=== PATIENT | male | born 1965 | race Caucasian/White ===

== ENCOUNTER → 2020-11-05 13:48 | Outpatient (BNVA) | payer SELFPAY | PROVIDERS: PCP Nurse Practitioner Family; Visit Provider Urology | DX: Z13.89 Encounter for screening for other disorder (principal) | CPT/HCPCS: 99212 ==

== ENCOUNTER 2022-12-12 08:21 | Outpatient (AMB) | payer OTHER, SELFPAY ==
--- NOTE | 2022-12-12 08:22 | MHC.OFFVIS ---
Intake Intake Visit Reasons: 1 year follow up(Erectile Dys) Intake Note: Patient is present for Follow Up yearly follow up Urology Med: Tadalafil Antibiotic Allergy:None Blood Thinner: None [facility]acy: [facility] HX Of bladder Cancer 2016- Cytology sent to lab Allergies No Known Allergies Allergy (Verified 12/12/22 08:24) HPI HPI Comments History of Present Illness Details Warren is pleasant male. He is a patient of Dr. Melton. 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 [facility] 12/03 These have been followed with other urologists Last testosterone 500s Response to Cialis Continue yearly follow-up [facility] Medical History (Updated 12/12/22 @ 08:25 by DAWIT Cheung) Hx of bladder cancer Hx of blood clots Hx of testicular cancer Review of Systems Const Denies chills and Denies fever(s) Card Reports no additional complaints and Denies syncope Resp Denies cough GI Denies abdominal pain and Denies heartburn Reports as per HPI and Denies change in libido Neuro Denies syncope Psych Denies change in libido Endo Denies change in libido Physical Exam Const General: cooperative, healthy appearing, comfortable and no acute distress Orientation/consciousness: patient oriented x3 HEENT Face and sinus: Yes normal facial exam Mouth: moist mucous membranes Neck Neck: Yes normal visual inspection, Yes full ROM and Yes trachea midline Chest Chest palpation & inspection: normal inspection of the chest Resp Effort & Inspection: normal respiratory effort, able to speak in complete sentences and no respiratory distress GI Inspection: Yes normal to inspection Back/Spine/Pelvis Cervical Spine: normal cervical lordosis Thoracic/Lumbar Spine: thoracic and lumbar spine normal to inspection Skin General skin exam: no rashes or lesions noted Neuro General: patient oriented x3, gait normal, tone normal and moves all extremities Extrem General: Yes normal to inspection and Yes capillary refill normal Results AMB Urinalysis, Automated UA Leukoctes 125 Andrew/uL Last Edit by DAWIT Cheung on 12/12/22 08:32 UA Nitrite Negative Last Edit by DAWIT Cheung on 12/12/22 08:32 UA Urobilinogen 0.2 mg/dL Last Edit by Jessica Garcia, RMA on 12/12/22 08:32 UA Protein 15 mg/dL Last Edit by Jessica Garcia, RMA on 12/12/22 08:32 UA pH 6.0 Last Edit by Jessica Garcia, RMA on 12/12/22 08:32 UA Blood 25 Jamel/uL Last Edit by Jessica Garcia, RMA on 12/12/22 08:32 UA Specific [place] 1.010 Last Edit by Jessica Garcia, RMA on 12/12/22 08:32 UA Ketone Negative Last Edit by Jessica Garcia, RMA on 12/12/22 08:32 UA Bilirubin 0 mg/dL Last Edit by Jessica Garcia, RMA on 12/12/22 08:32 UA Glucose 0 mg/dL Last Edit by Jessica Garcia, RMA on 12/12/22 08:32 Results Reviewed Results Reviewed: Laboratory Last Values Urine pH (Auto) 6.0 12/12/22 08:26 Specific [place] (Auto) 1.010 12/12/22 08:26 Urine Protein (Auto) 15 mg/dL 12/12/22 08:26 Glucose (UA)(Auto) 0 mg/dL 12/12/22 08:26 Urine Ketones (Auto) Negative 12/12/22 08:26 Urine Blood (Auto) 25 Jamel/uL 12/12/22 08:26 Urine Nitrite (Auto) Negative 12/12/22 08:26 Urine Bilirubin (Auto) 0 mg/dL 12/12/22 08:26 Urine Urobilinogen (Auto) 0.2 mg/dL 12/12/22 08:26 Leukocyte Esterase (Auto) 125 Andrew/uL 12/12/22 08:26 Assessment & Plan Assessment & Plan (1) Erectile dysfunction: Code(s): N52.9 - Male erectile dysfunction, unspecified Plan Twelve month follow-up Orders: Orders Urine Cytology Today Z85.51 - Personal history of malignant neoplasm of bladder AMB Urinalysis Automated Today Z13.9 - Encounter for screening, unspecified Patient Instructions: Imaging studies, laboratory and physical exam results were discussed and reviewed in detail. No major barriers to patient understanding were identified. An opportunity to ask questions regarding the treatment plan was provided. All questions were answered. The patient expressed understanding and agreement with the above treatment plan. The patient is aware they should contact our office by phone for worsening of their current condition or the appearance of new urologic symptoms. Compliance is encouraged with any medications and followup testing that is ordered. It is a privilege to participate in the urologic care of your patient. If you have any questions or concerns regarding treatment for the above conditions, or other urologic issues, please do not hesitate to contact me. The office telephone contact is [phone]. This note is constructed using voice recognition software. While every effort has been made to ensure accuracy government service executive errors may have been included. Yours sincerely, Dr Unruly Painter MD, [facility] - Urology Providers of Expert, Compassionate Care for the Genitourinary System Coding Level of Care Code Est Pt Level 4 (35210) Diagnoses Erectile dysfunction N52.9
== END 2022-12-12 08:51 | disposition home or self-care (01) ==
PROVIDERS: Visit Provider Urology
DX: N52.9 Male erectile dysfunction, unspecified (principal)
CPT/HCPCS: 99213

== ENCOUNTER 2022-12-12 08:21 | Outpatient (REF) | payer OTHER, SELFPAY ==
[2022-12-12 19:45] LABS: Urine Cytology See Pathology rpt
== END 2022-12-12 08:22 | disposition home or self-care (01) ==
LOC: HO.LAB 08:21
PROVIDERS: Visit Provider Urology
DX: N52.9 Male erectile dysfunction, unspecified (principal); Z85.51 Personal history of malignant neoplasm of bladder
CPT/HCPCS: 88112

== ENCOUNTER 2023-12-13 08:21 | Outpatient (AMB) | payer OTHER, SELFPAY ==
--- NOTE | 2023-12-13 08:31 | MHC.OFFVIS ---
Intake Visit Reasons: 1Y Follow Up-Erectile Dys Intake Note: Patient is Present for Follow Up Urology Medication: Tadalafil Antibiotic Allergies:none Blood Thinners:none Dye House Supervisor Required: No Allergies No Known Allergies Allergy (Verified 12/12/22 08:24) HPI Comments Details: Warren is pleasant male. He is a patient of Dr. Melton. 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 [facility] 12/03 These have been followed with other urologists - is undergoing surveillance imaging every 6 months Last testosterone 500s Response to Cialis Continue yearly follow-up [facility] Medical History Hx of bladder cancer Hx of testicular cancer Hx of blood clots Review of Systems Const Denies chills and Denies fever(s) Card Reports no additional complaints and Denies syncope Resp Denies cough GI Denies abdominal pain and Denies heartburn Reports as per HPI and Denies change in libido Neuro Denies syncope Psych Denies change in libido Endo Denies change in libido Physical Exam Const General: cooperative, healthy appearing, comfortable and no acute distress Orientation/consciousness: patient oriented x3 HEENT Face and sinus: Yes normal facial exam Mouth: moist mucous membranes Neck Neck: Yes normal visual inspection, Yes full ROM and Yes trachea midline Chest Chest palpation & inspection: normal inspection of the chest Resp Effort & Inspection: normal respiratory effort, able to speak in complete sentences and no respiratory distress GI Inspection: Yes normal to inspection Back/Spine/Pelvis Cervical Spine: normal cervical lordosis Thoracic/Lumbar Spine: thoracic and lumbar spine normal to inspection Skin General skin exam: no rashes or lesions noted Neuro General: patient oriented x3, gait normal, tone normal and moves all extremities Extrem General: Yes normal to inspection and Yes capillary refill normal Assessment & Plan Assessment & Plan (1) Erectile dysfunction: Code(s): N52.9 - Male erectile dysfunction, unspecified Category: Medical Plan Twelve month follow-up office Patient Instructions: Imaging studies, laboratory and physical exam results were discussed and reviewed in detail. No major barriers to patient understanding were identified. An opportunity to ask questions regarding the treatment plan was provided. All questions were answered. The patient expressed understanding and agreement with the above treatment plan. The patient is aware they should contact our office by phone for worsening of their current condition or the appearance of new urologic symptoms. Compliance is encouraged with any medications and followup testing that is ordered. It is a privilege to participate in the urologic care of your patient. If you have any questions or concerns regarding treatment for the above conditions, or other urologic issues, please do not hesitate to contact me. The office telephone contact is [phone]. This note is constructed using voice recognition software. While every effort has been made to ensure accuracy associate product integrity engineer errors may have been included. Yours sincerely, Dr Unruly Painter MD, [facility] - Urology Providers of Expert, Compassionate Care for the Genitourinary System Coding Level of Care Code Est Pt Level 4 (78429) Diagnoses Erectile dysfunction N52.9
== END 2023-12-13 08:50 | disposition home or self-care (01) ==
PROVIDERS: PCP Nurse Practitioner Family; Visit Provider Urology
DX: N52.9 Male erectile dysfunction, unspecified (principal)
CPT/HCPCS: 99214

== ENCOUNTER → 2023-12-13 08:21 | Outpatient (BNVA) | payer OTHER, SELFPAY | PROVIDERS: PCP Nurse Practitioner Family; Visit Provider Urology ==

== ENCOUNTER 2024-12-11 07:56 | Outpatient (AMB) | payer OTHER, SELFPAY ==
--- OUTSIDE RECORDS SUMMARY | 2024-07-14 09:30 | XMS_ITS ---
Author Name [facility] [place] [facility] [place] Address [address] [place] [address] Care Team Providers Care It Service Delivery Manager Name Role Phone DUNCAN ELDRIDGE Primary Care Provider Unavailabl e Insurance Providers: All historical and current Section Date Range: From patient's date of to the date document was created. This section includes the names of all active insurance providers for the patient. Insurance Provider Type of Coverage Plan Name Start of Policy Coverage End of Policy Coverage Group Number Member ID Insurance Provider's Telephone Number Policy Whatley's Name Patient's Relationship to Policy Whatley [facility] CE ORGANIZAT ION [facility] May 14, 2016 [id number] [phone] EJ,BROCK ID PATIENT [facility] RX PRESCRIPT [facility] May 14, 2016 [facility] [id number] [phone] EJ,BROCK ID PATIENT Selected Encounter This section includes the information on record at [place] for the Encounter. Date/Time Encounter Type Encounter Description Reason Pro vider Source Jul 14, 2024 01:30 PM Outpatient Encounter COMMUNITY CARE CONSULT IHE Encounter Template Text not used by [facility] Plan of Treatment: Future Appointments (+ 6 months) and Future Tests (+/- 45 days) The Plan of Treatment section includes future care activities for the patient from all [facility] treatmentfacilities. This section includes future appointments and future orders which are active, pending or scheduled. Future Appointments This section includes appointments that were scheduled to occur 6 months from the date of the Encounter, up to a maximum of 20 appointments. The data comes from all [place] treatment [facility]. Appointment Date/Time Appointment Type Appointme nt Facility Name Jul 15, 2024 09:30 AM AM[place]ULATORY [place]ICINE [place] [facility] [place] [facility] Aug 27, 2024 08:30 AM [place] [facility] [place] [facility] September 30, 2024 01:15 PM [place] [facility] [place] [facility] Dec 29, 2024 02:30 PM [place] [facility] [place] [facility] Jan 13, 2025 02:00 PM [facility] [place] [facility] Active, Pending, and Scheduled Orders This section includes a listing of several types of active, pending, and scheduled orders, including clinic medications orders, diagnostic test orders, procedure orders and consult orders; where the start date of the order is 45 days before the date of the Encounter or 45 days after the date of theEncounter. The data comes from all [facility]. Test Date/Time Test Type Test Details Facility Name Jul 14, 2024 03:23 PM Consult Order [facility]UL[facility] Cons [facility] Lab Results: +/- 30 days of the encounter This section includes the Chemistry and Hematology Lab Results on record with [place] for the patient. Radiology Reports and Pathology Reports are provided separately, in subsequent sections. Lab Results This section contains the Chemistry/Hematology Results that were resulted 30 days before or 30 daysafter the date of the Encounter. Date/Time Source Result Type Result - Unit Interpretation Reference Range Specimen Type Comment Aug 11, 2024 03:27 PM [facility] PT & INR (COU[facility]ADIN) PLASMA Specimen Type: PLASMA No comment entered. Ordering Provider: GRETCHEN OSHEA Report Released Date/Time: Aug 07, 2024 04:41 PM Reporting Lab: [facility] [address] [address] Performing Lab: [address] [address] INR 1.8 PROTIME 19.6 s H 10.0-13.1 Aug 07, 2024 09:53 AM [facility] [place] [facility] PT & INR ([place]) PLASMA Specimen Type: PLAS MARINA No comment entered. Ordering Provider: ERIS POPE Report Released Date/Time: Aug 05, 2024 04:00 PM Reporting Lab: [facility] [place] [facility] [address] [address] Performing Lab: [facility] [place] [facility] [address] [address] INR 1.8 PROTIME 19.4 s H 10.0-13.1 Aug 04, 2024 03:29 PM [facility] [place] PT & INR ([place]) PLASMA Specimen Type: PLAS MARINA No comment entered. Ordering Provider: ERIS POPE Report Released Date/Time: Jul 29, 2024 04:29 PM Reporting Lab: [facility] [place] [facility] [address] [address] Performing Lab: [facility] [place] [facility] [address] [address] INR 1.6 PROTIME 17.4 s H 10.0-13.1 Jul 29, 2024 01:43 PM [facility] [place] [facility] PT & INR (COUMADIN) PLASMA Specimen Type: PLAS MARINA No comment entered. Ordering Provider: GRETCHEN OSHEA Report Released Date/Time: Jun 26, 2024 04:33 PM Reporting Lab: [facility] [place] [facility] [address] [address] Performing Lab: [facility] [place] [facility] [address] [address] INR 1.4 PROTIME 15.4 s H 10.0-13.1 Jun 25, 2024 03:37 PM [facility] [place] [facility] PT & INR ([place]OU[facility]AD[place]) PLASMA Specimen Type: PLAS MARINA No comment entered. Ordering Provider: STEVIE LOREDO Report Released Date/Time: May 19, 2024 01:46 PM Reporting Lab: [facility] [place] [facility] [address] [address] Performing Lab: [facility] [place] [facility] [address] [address] INR 2.5 PROTIME 26.7 s H 10.0-13.1 Encounter Notes: All associated encounter notes This section contains the clinical notes associated to the Encounter. Date/Time Encounter Note(s) Provider Source Jul 14, 2024 01:30 PM ADMINISTRATIVE NOTE: LOCAL TITLE: ADMINISTRATIVE NOTE STANDARD TITLE: ADMINISTRATIVE NOTE DATE OF NOTE: JUL 14, 2024@13:30 ENTRY DATE: JUL 14, 2024@13:30:56 AUTHOR: KAMILAH PROCTOR EXP COSIGNER: URGENCY: STATUS: COMPLETED ADMINISTRATIVE NOTE Has ADDENDA CC provider is requesting: community care pulmonary consult [facility] Pulmonary & Critical Care Medicine [place] [address], [address] [place] [address] New formerly [facility] referrals: F [phone] -Pulm Dept - Pulm Dept Dx r59.9 lymphadenopathy Bronchoscopy with EBUS by Dr. Nova. No appt date yet. Alert to PACT-please enter CC pulm consult if in agreement. Thank you. /javy PROCTOR Community Care RN Signed: 07/14/2024 13:32 Receipt Acknowledged By: 07/14/2024 14:54 /katlyn/ LAINEY ROSE, RN REGISTERED NURSE 07/14/2024 16:21 /katlyn/ HEBER SANCHEZ MD PHYSICIAN 07/14/2024 ADDENDUM STATUS: COMPLETED Pulmonary consult added and held for PCP review and signature. /katlyn/ LAINEY ROSE RN REGISTERED NURSE Signed: 07/14/2024 14:54 KAMILAH PROCTOR [place] [facility]
--- NOTE | 2024-12-11 07:57 | A.OFFVIS_ITS ---
Intake Visit Reasons: 1y follow up Intake Note: Patient is Present for 1yr Follow Up Urology Medication: Tadalafil Antibiotic Allergies:none Blood Thinners:none Drilling And Production Superintendent Required: No Accompanied by: Self / Same As Patient Allergies No Known Allergies Allergy (Verified 12/11/24 07:58) HPI Comments Details: Warren is pleasant male. He is a patient of Dr. Melton. 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 [facility] 12/03 These have been followed with other urologists - is undergoing surveillance imaging every 6 months Last testosterone 500s Response to Cialis Continue yearly follow-up [facility] Medical History Hx of bladder cancer Hx of testicular cancer Hx of blood clots Review of Systems Const All systems reviewed & are unremarkable except as noted in HPI and below Reports no additional complaints Resp Reports no additional complaints GI Reports no additional complaints Reports as per HPI Musc Reports no additional complaints Physical Exam Telemedicine evaluation Appropriate responses Regular breathing rate and rhythm HEENT Head: Yes normal to inspection Ears: hearing grossly normal bilaterally Eyes General: appearance normal, both eyes and all related structures Neck Neck: Yes normal visual inspection Chest Chest palpation & inspection: normal inspection of the chest Resp Effort & Inspection: normal respiratory effort and able to speak in complete sentences Telehealth Telehealth Telehealth Platform: [employer] Location of provider rendering services: practice address Location of patient: address on file Patient Identification confirmed using: Name, : Yes Telehealth method: video Patient verbally consented to treatment: Yes Patient verbally consented to billing insurance company: Yes Patient informed of any privacy concerns related to visit: Yes Assessment & Plan Assessment & Plan (1) Erectile dysfunction: Code(s): N52.9 - Male erectile dysfunction, unspecified Category: Medical Plan 12 month up office Patient Instructions: This note is constructed using voice recognition software. While every effort has been made to ensure accuracy collar cutter errors may have been included. Imaging studies, laboratory and physical exam results were discussed and reviewed in detail. No major barriers to patient understanding were identified. An opportunity to ask questions regarding the treatment plan was provided. All questions were answered. The patient expressed understanding and agreement with the above treatment plan. The patient is aware they should contact our office by phone for worsening of their current condition or the appearance of new urologic symptoms. Compliance is encouraged with any medications and followup testing that is ordered. It is a privilege to participate in the urologic care of your patient. If you have any questions or concerns regarding treatment for the above conditions, or other urologic issues, please do not hesitate to contact me. The office telephone contact is [phone]. Sincerely, Dr Unruly Painter MD, [facility] - Urology Compassionate Specialist Care for the Genitourinary System Coding Level of Care Code Tele Est Pt Level 4 (93382) Diagnoses Erectile dysfunction N52.9
--- OUTSIDE RECORDS SUMMARY | 2024-12-11 07:58 | XMS_ITS | Clinical Summary ---
Author Organization [facility] Address [address] [address] Phone Care Team Providers Care Air Brake Operator Name Role Phone Quoc Tolliver MD Primary Care Provide r Allergies No known active allergies Medications tadalafiL (CIALIS, ADCIRCA) 20 MG tablet Take 20 mg by mouth daily as needed. 11/04/2021 Active warfarin (COUMADIN) 2 MG tablet Take 2-3 mg by mouth daily. 11/03/2021 Active acetaminophen (TYLENOL) 325 mg tablet Take 2 tablets (650 mg total) by mouth every 6 (six) hours as needed. 0 11/29/2022 Active diazePAM (VALIUM) 2 MG tablet Take 1 tablet (2 mg total) by mouth every 8 (eight) hours as needed. 6 tablet 11/29/2022 Active oxyCODONE 5 MG immediate release tablet Take 1 tablet (5 mg total) by mouth every 6 (six) hours as needed. Partial fill ok 10 tablet 11/29/2022 Active polyethylene glycol (MIRALAX) 17 gram packet Take 17 g by mouth daily as needed for other (free text field) (severe constipation ). 14 packet 11/29/2022 Active senna (SENOKOT) 8.6 mg tablet Take 1 tablet by mouth daily. 14 tablet 11/29/2022 Active Active Problems Problem Noted Date Diagnosed Date S/p nephrectomy 11/27/2022 Social History Tobacco Use Types Packs/Day Years Used Date Smoking Tobacco: Never Smokeless Tobacco: Never Tobacco Cessation:Counseling Given: Not Answered Alcohol Use Standard Drinks/Week Comments Yes 4 (1 standard drink = 0.6 oz pur e alcohol) 4 beers 3 times a week Education Answer Date Recorded Are you interested in more education? Not on becki e 09/09/2022 Are you concerned about learning? Not on file 09/09/2022 No 09/09/2022 No 09/09/2022 Digital Access Answer Date Recorded No 10/10/2022 No 10/10/2022 Reliable internet access at home? Not on file 10/10/2022 Device with a working camera? Not on file Intimate Partner Violence Answer Date R ecorded Are you denied basic needs s uch as food, clothing, or medical care? No 11/28/2022 In the past 12 months have y ou been in a relationship with a person who hurts, threatens, or tries to control you? No 11/28/2022 Are you denied basic needs s uch as food, clothing, or medical care? No 11/28/2022 In the past 12 months have y ou been in a relationship with a person who hurts, threatens, or tries to control you? No 11/28/2022 Sex and Gender Information Value Date Recorded Sex Assigned at Male 11/21/2022 12:27 PM EDT Legal Sex Male 3:19 PM EDT Gender Identity Male 11/21/2022 12:27 PM EDT Sexual Orientation Not on file Last Filed Vital Signs Vital Sign Reading Time Taken Comments Blood Pressure 166/104 12/07/2022 11:39 AM EDT Pulse 81 12/07/2022 11:39 AM EDT Temperature 36.4 C (97.6 F) 11/29/2022 12:20 PM EDT Respiratory Rate 16 11/29/2022 12:20 PM EDT Oxygen Saturation 98% 11/29/2022 12:20 PM EDT Inhaled Oxygen Concentration - - Weight 89.8 kg (198 lb) 11/27/2022 10:33 AM EDT Height 190.5 cm (6' 3 ) 11/27/2022 10:33 AM EDT Body Mass Index 24.75 11/27/2022 10:33 AM EDT Plan of Treatment Health Maintenance Due Date Last Done Comments LIPID PANEL 1966 DEPRESSION SCREENING 1978 HEPATITIS C SCREENING 1984 HIV ONE-TIME SCREENING (18-65 YEARS) 1984 COLOGUARD 2011 COLONOSCOPY 2011 COLORECTAL CANCER SCREENING 2011 FIT TEST 2011 FOBT 2011 SIGMOIDOSCOPY 2011 VIRTUAL COLONOSCOPY 2011 PNEUMOCOCCAL VACCINES (50+ years) (2 of 2 - PCV) 2016 07/22/2014 COVID-19 VACCINE (5 - season) 2024 06/22/2020, 06/02/2020, 05/22/2020, Additional history exists Adult Td,Tdap Booster 03/29/2031 03/29/2021 ZOSTER VACCINES Completed 06/17/2021, 03/29/2021 SMOKING STATUS SCREENING (Once After 26 Yrs) Completed 12/07/2022 HEPATITIS A VACCINES Aged Out No long er eligible based on patient's age to complete this topic HIB VACCINES Aged Out No longer eligi ble based on patient's age to complete this topic MENINGOCOCCAL VACCINES (ACWY) Aged Out No longer eligible based on patient's age to complete this topic MENINGOCOCCAL VACCINES (B) Aged Out N o longer eligible based on patient's age to complete this topic Medical Devices Implanted Type Area Photoengraving Etcher Apprentice Device Identifier Shelf Expiration Date Model / Serial / Lot [place] [employer] [facility] [place] [address] [facility] Member Subscriber Plan / Payer (Ef fective 2018-Present) Name:Warren De Jesus Relation to Subscriber:Self Name:Warren De Jesus Payer ID:[id number] (NAIC) Group ID:Not on file Type:Indemnity Address: [facility] [employer] [id number] Care Teams Air Brake Operator Relationship Specialty Start Date End Date Quoc Tolliver MD [address] [place] [address] PCP - General Urology 11/10/21 Additional Source Comments The information contained in this document represents components of the legal health record. It is not the complete legal health record.[facility]
--- OUTSIDE RECORDS SUMMARY | 2024-12-11 07:58 | XMS_ITS | Clinical Summary ---
Author Organization [facility], Address [address] [place] [address] Phone Care Team Providers Care Market Research Manager Name Role Phone Kierra Melton DNP Primary Care Provider + Allergies No known active allergies Medications warfarin (COUMADIN) 3 MG tablet Take 3 mg by mouth 3 (three) times a week Sunday, , Sunday Active warfarin (COUMADIN) 2 MG tablet Take 2 mg by mouth 4 times weekly on Sun and Sun Take as directed per After Visit Summary. 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 Factor V Leiden mutation 12/01/2021 History of testicular disorder 12/01/2021 Social History Tobacco Use Types Packs/Day Years Used Date Smoking Tobacco: Never Assessed Sex and Gender Information Value Date Recorded Sex Assigned at Not on file Legal Sex Male 4:33 PM EST Gender Identity Not on file Sexual Orientation Not on file Last Filed Vital Signs Vital Sign Reading Time Taken Comments Blood Pressure 153/91 12/02/2021 11:22 AM EDT Pulse 67 12/02/2021 11:22 AM EDT Temperature 36.7 C (98.1 F) 12/02/2021 11:22 AM EDT Respiratory Rate 12 12/02/2021 11:22 AM EDT Oxygen Saturation 98% 12/02/2021 11:22 AM EDT Inhaled Oxygen Concentration - - Weight 81.6 kg (180 lb) 12/02/2021 11:22 AM EDT Height 190.5 cm (6' 3 ) 12/02/2021 11:22 AM EDT Body Mass Index 22.5 12/02/2021 11:22 AM EDT Plan of Treatment Health Maintenance Due Date Last Done Comments Hepatitis B Vaccine (1 of 3 - 19+ 3-dose series) 04/19 Pneumococcal Vaccine: 50+ Years (1 of 2 - PCV) 985 Colorectal Cancer Screening: Annual FOBT 2015 Colorectal Cancer Screening: Colonoscopy 2015 Colorectal Cancer Screening: Sigmoidoscopy 2015 Influenza Vaccine (#1) 2025 Insurance [employer]ions 1,2,3 (VACCN) Care Teams Market Research Manager Relationship Specialty Start Date End Date Kierra Melton DNP [address] [place] [id number] PCP - General Nurse Practitioner 12/02/21
== END 2024-12-11 09:23 | disposition home or self-care (01) ==
LOC: HO.HUSH 07:56
PROVIDERS: PCP Nurse Practitioner Family; Visit Provider Urology
DX: N52.9 Male erectile dysfunction, unspecified (principal)
CPT/HCPCS: 99214